=== PATIENT | female | born 2000 ===

== ENCOUNTER 2025-05-08 15:12 | Observation (INO) | payer OTHER ==
[~2025-05-08] VITALS: Ht 157.5 cm; Wt 59.0 kg
[2025-05-08] MEDS ORDERED: LORazepam 2 MG/ML 1ML Injection IM ONE ×2 (17:05→18:00)
[2025-05-08 18:09] LABS: BASOPHILS ABSOLUTE AUTO 0.04 K/mm3 (0.00-0.23); BASOPHILS PERCENT AUTO 1 % (0-2); EOSINOPHILS ABSOLUTE AUTO 0.32 K/mm3 (0.00-0.68); EOSINOPHILS PERCENT AUTO 5 % (0-6); Hematocrit 38.8 % (33.0-51.0); Hemoglobin 13.4 g/dL (11.5-16.0); IMMATURE GRAN ABSOLUTE AUTO 0.02 K/mm3 (0.00-0.10); IMMATURE GRAN PERCENT AUTO 0 % (0-1); LYMPHOCYTES ABSOLUTE AUTO 1.65 K/mm3 (0.84-5.20); LYMPHOCYTES PERCENT AUTO 26 % (21-46); MONOCYTES ABSOLUTE AUTO 0.58 K/mm3 (0.16-1.47); MONOCYTES PERCENT AUTO 9 % (4-13); Mean Corpuscular HGB Conc 34.5 g/dL (31.5-36.5); Mean Corpuscular Volume 89 fL (80-100); NEUTROPHILS ABSOLUTE AUTO 3.86 K/mm3 (1.96-9.15); NEUTROPHILS PERCENT AUTO 60 % (41-73); NRBC ABSOLUTE 0.00 K/mm3 (0.00-0.02); NRBC Auto 0.0 /100 WBC (0.0-0.2); Platelet Count 286 K/mm3 (150-400); RDW Coefficient Variation 11.9 % (11.7-14.2); RDW Standard Deviation 39.2 fL (35.1-46.3)
[2025-05-08 18:36] LABS: Salicylate <1.7 mg/dL (2.8-20.0)
[2025-05-08 18:46] LABS: Source, Urine Clean Catch
[2025-05-08 18:52] LABS: Ethanol (Alcohol), Blood, Med <3 mg/dL
[2025-05-08 19:02] LABS: Bilirubin, Urine Neg (Neg); Color, Urine Yellow (P-Yellow); Glucose Qualitative, Urine Neg (Neg); Ketones, Urine 3+ (Neg); Leukocyte Esterase, Urine Neg (Neg); Protein, Urine 2+ (Neg); Specific Gravity, Urine 1.025 (1.003-1.022); Urobilinogen, Urine NORM (Normal)
[2025-05-08 19:08] LABS: Alanine Aminotransfer (ALT/SGP 99 U/L (12-78); Albumin, Blood 4.1 g/dL (3.4-5.0); Albumin/Globulin Ratio 1.1 (0.8-1.8); Anion Gap 10 mmol/L (3-11); Aspartate Aminotrans (AST/SGOT 37 U/L (12-37); Bilirubin, Total 0.3 mg/dL (0.1-1.0); Blood Urea Nitrogen 7 mg/dL (8-24); CO2, Blood 24 mmol/L (21-32); Calcium, Blood 9.2 mg/dL (8.5-10.1); Chloride, Blood 106 mmol/L (98-108); Creatinine, Blood 0.61 mg/dL (0.40-1.00); Globulin, Blood 3.8 g/dL (2.2-4.0); Glucose, Blood 119 mg/dL (70-99); Potassium, Blood 3.6 mmol/L (3.5-5.5); Sodium, Blood 136 mmol/L (136-145); Total Protein, Blood 7.9 g/dL (6.4-8.2)
[2025-05-08 19:09] LABS: Acetaminophen, Random <2.0 ug/mL (10.0-30.0)
[2025-05-08 19:12] LABS: Red Blood Cells, Urine 50-100 /hpf (0-2)
[2025-05-08 19:16] LABS: U Amphetamine Screen Not Detected; U Barbituate Screen Not Detected; U Benzodiazapine Screen Not Detected; U Buprenorphine Screen Not Detected; U Cannabinoids Screen DETECTED; U Cocaine Screen Not Detected; U Methadone Screen Not Detected; U Methamphetamine Screen Not Detected; U Opiates Screen Not Detected; U Oxycodone Screen Not Detected; U Phencyclidine Screen Not Detected
[2025-05-09] MEDS ORDERED: RIFA300 PO (16:34)
[2025-05-09] MEDS ORDERED: DULOXETINE HCL60 M1 PO (16:36)
[2025-05-09] MEDS ORDERED: DROSPIRENONE-E1 EAC4 PO (16:37)
[2025-05-09] MEDS ORDERED: PREGABALIN75 MG PO (16:37)
[2025-05-09] MEDS ORDERED: Isoniazid300 MG (16:38)
== END 2025-05-10 15:03 | disposition other institution (70) ==
LOC: ER 15:12 → EOR 15:13 → EDBEDREQ 05-10 12:47 → EOR 05-10 15:03
PROVIDERS: Physician Assistant; ADMIT Emergency Medicine
DX: F32.A Depression, unspecified (principal); R45.851 Suicidal ideations
CPT/HCPCS: 71045; 80053; 80320; 81001; 81025; 85025; 93005; 93010; 96372; 99285-25; A9270; G0378; G0480; J2060

== ENCOUNTER 2025-05-10 12:33 | Inpatient (IN) | payer OTHER ==
[~2025-05-10] VITALS: Ht 157.5 cm; Wt 61.7 kg
[~2025-05-10 12:33] MED LIST: DROSPIRENONE-E1 EAC4 PO; DULOXETINE HCL60 M1 PO; Isoniazid300 MG; PREGABALIN75 MG PO; RIFA300 PO
[2025-05-10] MEDS ORDERED: Ondansetron 4 MG SoluTab MM PRN (15:10)
[2025-05-10] MEDS ORDERED: Polyethylene Glycol 3350 17 gm PO PRN (15:10)
[2025-05-10] MEDS ORDERED: Haloperidol Lactate Inj. 5 MG/ML Injection IM PRN (15:15)
[2025-05-10] MEDS ORDERED: DiphenhydrAMINE HCl 50 MG/ML 1ML Vial IM PRN (15:15)
[2025-05-10 15:19] VITALS: BP 120/82
[2025-05-10] MEDS ORDERED: Aluminum Hydroxide 320MG/5ML 473 ML PO PRN (15:20)
[2025-05-10 16:19] VITALS: BP 120/82
[2025-05-10 20:54] VITALS: BP 118/77
[2025-05-11] MEDS ORDERED: Multivitamins 1 Tab PO SCH (09:00)
[2025-05-11 09:18] VITALS: BP 119/72
[2025-05-11] MEDS ORDERED: DULoxetine HCL 60 MG Capsule DR PO SCH (10:00)
[2025-05-11 15:24] VITALS: BP 122/93
[2025-05-12] MEDS ORDERED: Misc. Tablet PO SCH (09:00)
[2025-05-12 09:29] VITALS: BP 107/76
[2025-05-12] MEDS ORDERED: LORazepam 2 MG/ML 1ML Injection IM PRN (12:15)
[2025-05-12 20:46] VITALS: BP 105/73
[2025-05-13 09:01] VITALS: BP 124/83
[2025-05-13 19:35] VITALS: BP 126/83
[2025-05-14 08:02] VITALS: BP 112/77
[2025-05-14 08:37] LABS: Albumin, Blood 3.7 g/dL (3.4-5.0); Anion Gap 8 mmol/L (3-11); Blood Urea Nitrogen 15 mg/dL (8-24); CO2, Blood 25 mmol/L (21-32); Calcium, Blood 9.1 mg/dL (8.5-10.1); Chloride, Blood 109 mmol/L (98-108); Creatinine, Blood 0.75 mg/dL (0.40-1.00); Glucose, Blood 86 mg/dL (70-99); Phosphorus, Blood 3.9 mg/dL (2.5-4.9); Potassium, Blood 4.0 mmol/L (3.5-5.5); Sodium, Blood 138 mmol/L (136-145)
[2025-05-14 08:38] LABS: CHOL/HDL RATIO 3.4; Cholesterol 197 mg/dL (50-200); HDL Cholesterol 58 mg/dL (>39); LDL/HDL RATIO 2.0; Low Density Lipoprotein Chol 116 mg/dL (0-110); Triglycerides 117 mg/dL (30-140); Very Low Density Lipoprot Chol 23 mg/dL (6-28)
[2025-05-14 19:14] VITALS: BP 103/70
[2025-05-15 07:58] VITALS: BP 119/79
[2025-05-15 19:31] VITALS: BP 108/67
[2025-05-16 09:04] VITALS: BP 105/73
[2025-05-16 19:27] VITALS: BP 112/69
[2025-05-17 09:08] VITALS: BP 124/71
[2025-05-17 19:03] VITALS: BP 97/72
[2025-05-17 19:52] LABS: Lithium 0.28 mmol/L (0.60-1.20)
[2025-05-18 07:30] VITALS: BP 108/82
[2025-05-18 20:44] VITALS: BP 121/73
[2025-05-19 19:45] VITALS: BP 112/80
[2025-05-20 07:31] VITALS: BP 115/80
[2025-05-20 20:17] VITALS: BP 121/77
[2025-05-21 08:55] VITALS: BP 126/79
[2025-05-21 19:24] VITALS: BP 108/76
[2025-05-22 07:54] VITALS: BP 120/76
[2025-05-22 14:46] LABS: Source, Urine Clean Catch
[2025-05-22 15:14] LABS: Bilirubin, Urine Neg (Neg); Glucose Qualitative, Urine Neg (Neg); Ketones, Urine Neg (Neg); Leukocyte Esterase, Urine Neg (Neg); Protein, Urine Neg (Neg); Specific Gravity, Urine 1.005 (1.003-1.022); Urobilinogen, Urine NORM (Normal)
[2025-05-22 15:19] LABS: Color, Urine No Color (P-Yellow)
[2025-05-22] MEDS ORDERED: Dextran/Hypromellose/Glycerin 15 DROP/ML BTL BOTHEYES PRN (23:15)
[2025-05-23 07:08] VITALS: BP 116/75
[2025-05-23 17:32] LABS: Lithium 0.93 mmol/L (0.60-1.20)
[2025-05-24 07:52] VITALS: BP 135/97
[2025-05-24 20:44] VITALS: BP 114/75
[2025-05-25 07:53] VITALS: BP 118/82
[2025-05-25] MEDS ORDERED: DULoxetine HCL 60 MG Capsule DR PO SCH (12:35)
[2025-05-25 19:25] VITALS: BP 131/82
[2025-05-26 06:54] VITALS: BP 116/82
[2025-05-26 09:38] VITALS: BP 116/82
[2025-05-26] MEDS ORDERED: CLON.5 PO (17:05)
[2025-05-26] MEDS ORDERED: ABILIFY MYCITE10 M2 PO (17:05)
[2025-05-26] MEDS ORDERED: LAMO25 PO (17:06)
[2025-05-26] MEDS ORDERED: Lithium Carbon450 MG PO (17:08)
[2025-05-26] MEDS ORDERED: OLAN20 MM (17:09)
[2025-05-26 19:31] VITALS: BP 122/79
[2025-05-27 07:31] VITALS: BP 122/77
== END 2025-05-27 13:22 | disposition home or self-care (01) | DRG 885 ==
LOC: BHU 12:33
PROVIDERS: ADMIT Psychiatry & Neurology Psychiatry
DX: F31.2 Bipolar disorder, current episode manic severe with psychotic features (principal); Z79.899 Other long term (current) drug therapy
CPT/HCPCS: 36415; 80061; 80069; 80178; 81003; 83036; A9270

== ENCOUNTER 2025-08-06 14:30 | Observation (INO) | payer OTHER ==
[~2025-08-06] VITALS: Ht 157.5 cm; Wt 56.7 kg
[~2025-08-06 14:30] MED LIST changes: +ABILIFY MYCITE10 M2 PO; +CLON.5 PO; +LAMO25 PO; +Lithium Carbon450 MG PO; +OLAN20 MM
[2025-08-06 16:11] LABS: BASOPHILS ABSOLUTE AUTO 0.03 K/mm3 (0.00-0.23); BASOPHILS PERCENT AUTO 0 % (0-2); EOSINOPHILS ABSOLUTE AUTO 0.04 K/mm3 (0.00-0.68); EOSINOPHILS PERCENT AUTO 1 % (0-6); Hematocrit 42.0 % (33.0-51.0); Hemoglobin 14.5 g/dL (11.5-16.0); IMMATURE GRAN ABSOLUTE AUTO 0.01 K/mm3 (0.00-0.10); IMMATURE GRAN PERCENT AUTO 0 % (0-1); LYMPHOCYTES ABSOLUTE AUTO 1.56 K/mm3 (0.84-5.20); LYMPHOCYTES PERCENT AUTO 20 % (21-46); MONOCYTES ABSOLUTE AUTO 0.67 K/mm3 (0.16-1.47); MONOCYTES PERCENT AUTO 9 % (4-13); Mean Corpuscular HGB Conc 34.5 g/dL (31.5-36.5); Mean Corpuscular Volume 89 fL (80-100); NEUTROPHILS ABSOLUTE AUTO 5.61 K/mm3 (1.96-9.15); NEUTROPHILS PERCENT AUTO 71 % (41-73); NRBC ABSOLUTE 0.00 K/mm3 (0.00-0.02); NRBC Auto 0.0 /100 WBC (0.0-0.2); Platelet Count 341 K/mm3 (150-400); RDW Coefficient Variation 11.9 % (11.7-14.2); RDW Standard Deviation 38.6 fL (35.1-46.3)
[2025-08-06 16:44] LABS: Acetaminophen, Random 4.2 ug/mL (10.0-30.0); Alanine Aminotransfer (ALT/SGP 21 U/L (12-78); Albumin, Blood 4.7 g/dL (3.4-5.0); Albumin/Globulin Ratio 1.2 (0.8-1.8); Anion Gap 12 mmol/L (3-11); Aspartate Aminotrans (AST/SGOT 16 U/L (12-37); Bilirubin, Total 0.5 mg/dL (0.1-1.0); Blood Urea Nitrogen 14 mg/dL (8-24); CO2, Blood 24 mmol/L (21-32); Calcium, Blood 10.2 mg/dL (8.5-10.1); Chloride, Blood 103 mmol/L (98-108); Creatinine, Blood 0.64 mg/dL (0.40-1.00); Ethanol (Alcohol), Blood, Med <3 mg/dL; Globulin, Blood 3.8 g/dL (2.2-4.0); Glucose, Blood 104 mg/dL (70-99); Potassium, Blood 3.6 mmol/L (3.5-5.5); Salicylate <1.7 mg/dL (2.8-20.0); Sodium, Blood 135 mmol/L (136-145); Total Protein, Blood 8.5 g/dL (6.4-8.2)
[2025-08-06 17:23] LABS: Source, Urine Clean Catch
[2025-08-06 17:33] LABS: Bilirubin, Urine Neg (Neg); Color, Urine Yellow (P-Yellow); Glucose Qualitative, Urine Neg (Neg); Ketones, Urine 4+ (Neg); Leukocyte Esterase, Urine Neg (Neg); Protein, Urine Neg (Neg); Specific Gravity, Urine 1.015 (1.003-1.022); Urobilinogen, Urine NORM (Normal)
[2025-08-06 17:49] LABS: U Cannabinoids Screen DETECTED
[2025-08-06 17:50] LABS: U Amphetamine Screen Not Detected; U Barbiturate Screen Not Detected; U Benzodiazapine Screen Not Detected; U Buprenorphine Screen Not Detected; U Cocaine Screen Not Detected; U Methadone Screen Not Detected; U Methamphetamine Screen Not Detected; U Opiates Screen Not Detected; U Oxycodone Screen Not Detected; U Phencyclidine Screen Not Detected
[2025-08-07] MEDS ORDERED: LORazepam 2 MG/ML 1ML Injection IV ONE (06:50)
[2025-08-07] MEDS ORDERED: Methyl Salicylate/Menth/Camph 57 GM TUBE TOP ONE (13:35)
== END 2025-08-07 15:11 | disposition other institution (70) ==
LOC: ER 14:30 → EOR 14:31
PROVIDERS: ADMIT Student in an Organized Health Care Education/Training Program
DX: F31.2 Bipolar disorder, current episode manic severe with psychotic features (principal); Z79.899 Other long term (current) drug therapy
CPT/HCPCS: 80053; 80320; 81003; 84703; 85025; 99285; A9270; G0378; G0480

== ENCOUNTER 2025-08-07 13:18 | Inpatient (IN) | payer OTHER ==
[~2025-08-07] VITALS: Ht 157.5 cm; Wt 63.1 kg
[2025-08-07] MEDS ORDERED: Haloperidol Lactate Inj. 5 MG/ML Injection IM PRN (15:00)
[2025-08-07] MEDS ORDERED: FLU VACC TS2025-26(6MOS UP)/PF 45 MCG/0.5 ML SYRINGE IM ONE (15:05)
[2025-08-07] MEDS ORDERED: Aluminum Hydroxide 320MG/5ML 473 ML PO PRN (15:05)
[2025-08-07] MEDS ORDERED: LORazepam 2 MG/ML 1ML Injection IM PRN (15:05)
[2025-08-07] MEDS ORDERED: Ondansetron 4 MG SoluTab MM PRN (15:05)
[2025-08-07] MEDS ORDERED: DiphenhydrAMINE HCl 50 MG/ML 1ML Vial IM PRN (15:10)
[2025-08-07] MEDS ORDERED: Polyethylene Glycol 3350 17 gm PO PRN (15:10)
[2025-08-07 15:35] VITALS: BP 99/75
[2025-08-07 15:57] VITALS: BP 99/75
--- NOTE | 2025-08-07 18:15 | NUR ---
ADMISSION SUMMARY PT ADMITTED FROM [facility] ED FOR [facility]. PT CALM AND COOPERATIVE WITH ADMISSION QUESTIONS. PT UNSURE OF WHAT BROUGHT HER TO THE ED AND STATES "I DON'T REMEMBER". SKIN CHECK COMPLETED WITH GINGER TORREZ. PT HAS 2 PIERCINGS IN EACH EAR AND ONE PIERCING IN HER NOSE. NO SKIN ABNORMALITIES NOTED AT THIS TIME. PT STATES THAT SHE HAS AN ADVANCED DIRECTIVE FOR MENTAL HEALTH TREATMENT AND THAT IT IS ON FILE AT [facility]. PT STATES THAT HER APPOINTED DECISION MAKER AT THIS TIME IS HER MOTHER. SHE WAS ORIENTED TO HER ROOM AND THE UNIT. SHE ATE DINNER AND IS WATCHING TV IN THE GROUP ROOM AT THE TIME OF THIS NOTE. SHE DENIES SI, HI, AVTH. HER SPEECH IS SOMEWHAT TANGENTIAL AND HER AFFECT IS BLUNTED.
[2025-08-07 19:02] VITALS: BP 114/79
--- NOTE | 2025-08-08 05:43 | NUR ---
SHIFT SUMMARY Pt is A&O to self and place. Pt is somewhat cooperative, fidgety, anxious. Pt describes her mood as "nervous," affect is flat. Pt denies SI and HI. Pt stated that she is hearing a lot of things, but not voices. She denies VH. Pt endorsed fibromyalgia pain 3/10w at the beginning of the shift, stating that she did not need a PRN for pain. Pt's speech is tangential and disorganized, displaying flight of ideas. Pt maintained a presence at the nurse station throughout the evening, bringing up various complaints and making numerous requests. At about 2029 pt reported anxiety and was offered PRN hydroxyzine or olanzapine, hydroxyzine was given at 2035 for MASS-3. Pt then reported fibromyalgia pain of 10 in her left hip and was given PRN ibuprofen at 2053. Pt requested something to help her sleep and was given PRN trazodone at 2108. Pt then requested a change of clothing so she could shower. She requested to use [facility] shower room because she was afraid she would drown in her own shower. Staff told that she needed to use the shower in her room. A few minutes later, staff heard a scream from pt's room. Upon investigation, pt stated she screamed because the water was cold. After her shower, pt continued to pace the ahn with her journal. She requested to call the "fibromyalgia group" but was told it was too late to make phone calls. Pt was offered a second dose of trazodone, which she took at 2155. At about 0 pt asked for another pain med for her left hip and was given PRN APAP at 2215. Pt approached the nurse station and complained that she was shaking and nervous. PRN olanzapine was given at 2300. Pt reported left hip pain 10 and received PRN ibuprofen at 0352. Pt reported that the pain was down to 4, but still requested PRN APAP, which she received at 0434; pt asleep at reassessment. Pt did report that she normally takes pregabalin HS to help with fibromyalgia pain. Pt was in and out of her room all night. Staff continues to monitor q15m for safety and wellness.
[2025-08-08 08:59] VITALS: BP 109/78
[2025-08-08] MEDS ORDERED: Multivitamins 1 Tab PO SCH (09:00)
--- NOTE | 2025-08-08 10:22 | NUR ---
PRN MEDICATION ADMINISTRATION PT EMOTIONALLY LABILE AND DISTRAUGHT. PT C/O FIBROMYALGIA PAIN BUT ALSO EXPERIENCING PARANOIA REGARDING HER MOTHER AND SISTER "WATCHING HER THROUGH A WATCH". PT AGREEABLE TO TYLENOL FOR PAIN AND ZYPREXA FOR AGITATION. MASS SCORE COMPLETED (SEE DOCUMENTATION) AND PT MEDICATED PER EMR.
--- NOTE | 2025-08-08 16:50 | NUR ---
SHIFT SUMMARY PT DENIES SI, HI, AVTH. CONTINUES TO BE TANGENTIAL, ANXIOUS, AND APPEARS TO HAVE RACING THOUGHTS. PT HAS BEEN GOING INTO PT ROOMS AND USING THEIR TOOTHBRUSH PER PT COMPLAINTS, EDUCATED PT ABOUT RESPECTING PT'S ROOMS/BELONGINGS AND HAVE BEEN REDIRECTING PT WHEN PT APPEARS TO BE WALKING INTO A DIFFERENT ROOM. PT HAS NOT SINCE WALKED INTO ANOTHER PT'S ROOM SINCE INITIAL COMPLAINT. PT T/O DAY C/O OF FIBROMYALGIA PAIN AND HAS BEEN TREATING PER EMAR. TALKED W/ PT'S MOM ON PHONE W/ PT'S PERMISSION AND UPDATED MOM ON PT. PT REQUESTED HOME MED LYRICA AND ORDERED PER DR ESTEBAN. NO OTHER ACUTE EVENTS TODAY.
[2025-08-08 19:09] VITALS: BP 105/74
--- NOTE | 2025-08-09 05:37 | NUR ---
SHIFT SUMMARY Pt is A&O to self and place, calm, cooperative, appropriately dressed, eye contact is appropriate. Pt s mood was "okay," affect is constricted. Pt denies SI, HI and hallucinations, but pt was noted apparently responding to internal stimuli overnight. Pt endorsed fibromyalgia pain 8/10w in her left hip and right shoulder. No other medical complaints. Pt paced around the milieu during the early evening, occasionally sitting in the dayroom with peers and appeared less fidgety that the prior evening. Pt received PRN ibuprofen for pain at 1905, which was effective. Pt requested PRN trazodone with her HS meds. At about 2200 pt was up to the nurse station, and stated that she was testing her mother. RN offered second dose of trazodone, which pt accepted before returning to her room. Pt was was only out of her room a few times after initially retiring. She expressed several delusional thoughts including that the pens provided to patients have trackers in them and that her mother can hear her thoughts through the pen. Staff continues to monitor q15m for safety and wellness.
[2025-08-09 07:57] VITALS: BP 110/76
[2025-08-09] MEDS ORDERED: DULoxetine HCL 60 MG Capsule DR PO SCH (09:00)
[2025-08-09 11:12] VITALS: BP 110/76
[2025-08-09] MEDS ORDERED: ARIPiprazole 300 MG SUSER.SYR IM SCH (17:00)
--- NOTE | 2025-08-09 17:35 | NUR ---
SHIFT SUMMARY: PT IS ALERT AND ORIENTED TO SELF AND LOCATION. SHE IS CALM AND COOPERATIVE WITH CARE. SHE DENIES SI AND HI. WHEN ASKED IF SHE IS HAVING HALLUCINATIONS SHE POINTED TO HER FOREHEAD AND NODDED. WHEN ASKED HER MOOD SHE ROLLED HER EYES AND STATED, "I'M BUILDING AN ARMY". HER SPEECH IS TANGINTIAL AT TIMES, APPEARS TO HAVE RACING THOUGHTS AND DELUSIONS. PT C/O HEADACHE AND SHOULDER PAIN THAT SHE STATES IS FIBROMYALGIA. SHE WAS MEDICATED AT 0740 AND 1530 WITH IBUPROFEN AND AT 0915 WITH TYLENOL PER EMAR. SHE C/O NAUSEA AND HAD A SMALL AMOUNT OF EMESIS IN THE MORNING, SHE WAS MEDICATED WITH ZOFRAN PRN PER EMR. SHE WAS ACTIVE IN THE MILIEU, PACING IN THE HALLS AND TALKING WITH STAFF. SHE WAS IN AND OUT OF THE ROOM DURING GROUPS AND ATTENDED MEALS. SHE SPENT MUCH OF THE DAY AT THE NURSES STATION ENGAGED WITH STAFF. SHE HAS 2 EARRINGS TO EACH EAR AND A NOSE RING THAT ARE INTACT. PT MONITORED WITH Q 15 MIN CHECKS FOR SAFETY PER UNIT PROTOCOL.
[2025-08-09 19:22] VITALS: BP 110/71
--- NOTE | 2025-08-09 21:44 | NUR ---
MID-SHIFT SUMMARY Pt is A&O, calm, cooperative, appropriately dressed, eye contact is appropriate. Pt s mood was "way better," affect is constricted. Pt denies SI, HI and hallucinations; no visible indication of responding to internal stimuli overnight noted by this blog writer. Pt stated that fibromyalgia was tolerable this evening and did not request PRN meds. Pt requested PRN trazodone with her HS meds. Pt tended to stay in her room during the evening, but did come out for assessment, snack, and meds. Staff continues to monitor q15m for safety and wellness.
--- NOTE | 2025-08-09 21:44 | NUR ---
MID-SHIFT SUMMARY Pt is A&O, calm, cooperative, polite, appropriately dressed, eye contact is appropriate. Pt stated that her mood is "good," affect is euthymic. Pt denies SI, HI, and current hallucinations. Pt endorsed neck and right shoulder pain 3/10w, but the pain does go up or down depending on activity and positioning. She did request PRN ibuprofen with her HS meds. Pt stated that she did have a BM today and continues taking docusate HS. Pt feels that she had made good progress during this admission and feels that she will be ready for discharge when her hold ends on Saturday. Pt was active on the milieu, watching TV with peers and staff. Staff continues to monitor q15m for safety and wellness.
--- NOTE | 2025-08-10 03:40 | NUR ---
ASSUMPTION OF CARE ASSUMED CARE OF PATIENT FROM GINGER WELCH AT 2199. SHE IS CURRENTLY RESTING QUIETLY IN THEIR BED. NO SIGNS OF ACUTE DISTRESS NOTED. SHE RECEIVED TO FOLLOWING PRN MEDICATIONS PRIOR IN THE SHIFT: TRAZADONE 50MG FOR SLEEP AT 2016 AND IBUPROFEN 600MG FOR LEG PAIN AT 2118.
--- NOTE | 2025-08-10 05:00 | NUR ---
END OF SHIFT SUMMARY ASSUMED CARE OF PATIENT FROM GINGER WELCH AT 2200. SHE IS CURRENTLY RESTING QUIETLY IN HER BED. SHE HAS BEEN AWAKE SINCE APPROXIMATELY 0117. SHE VARIED BETWEEN SITTING IN THE SENSORY ROOM, PACING IN THE MCRAE, SITTING IN THE MCRAE, AND TALKING TO STAFF. SHE WAS REDIRECTED TO LEAVE ANOTHER PATIENT'S ROOM ONCE AND REEDUCATED THAT THIS BEHAVIOR WAS NOT ALLOWED. SHE RECEIVED THE FOLLOWING PRN MEDICATIONS: MELATONIN 3MG FOR SLEEP AT 0121 AND TYLENOL 650MG FOR A HEADACHE AT 0310.
--- NOTE | 2025-08-10 05:01 | NUR ---
PRN NOTE PATIENT RECEIVED THE FOLLOWING PRN MEDICATIONS DURING SPRINKLER HELPER: TRAZADONE 50MG FOR SLEEP AT 2016, IBUPROFEN 600MG FOR LEG PAIN AT 2118, MELATONIN 3MG FOR SLEEP AT 120 AND TYLENOL 650MG FOR A HEADACHE AT 309.
[2025-08-10 07:04] VITALS: BP 124/90
--- NOTE | 2025-08-10 17:09 | NUR ---
SHIFT SUMMARY PT A/O X3 AND COOPERATIVE WITH CARE. SHE DENIES SI AND HI. PT UNSURE IF SHE IS EXPERIENCING AUDITORY HALLUCINATIONS. PT STATES "I HEAR VOICES BUT I THINK IT MAY JUST BE STAFF, I'M NOT SURE." PT CALM AND ENGAGED WITH MILIEU ACTIVITIES THIS SHIFT. HER SPEECH IS TANGENTIAL AT TIMES AND SHE EXPERIENCES SOME DELUSIONS RELATED TO HER MOTHER SPYING ON HER. SHE OFTEN PACES IN THE HALLS AND SOMETIMES REQUIRES REDIRECTION. HER AFFECT IS CONSTRICTED AND HER SHE DESCRIBES HER MOOD "SO, SO". SHE IS MONITORED Q15 PER UNIT PROTOCOL FOR SAFETY AND WELLNESS.
[2025-08-10 19:20] VITALS: BP 124/81
--- NOTE | 2025-08-10 22:53 | NUR ---
MID SHIFT SUMMARY FOR REPORT OFF: PT HAS HAD AN UNEVENTFUL EVENING. PARTICIPATED IN TV TIME, SNACK, AND THEN WENT TO BED FOR EVENING. NO C/O A/V HALLUCINATIONS, NO THOUGHTS OF SELF HARM. C/O HEADACHE EARLIER THIS EVENING WHICH WAS FULLY RELIEVED BY ADMINISTRATION OF ACETAMINOPHEN. CONT 15 MIN CHECKS PER PROTOCOL.
--- NOTE | 2025-08-10 23:21 | NUR ---
Assumed care of patient at 2311. Patient currently sleeping. Will continue every 15 minute per unit protocol for safety and comfort.
--- NOTE | 2025-08-11 04:46 | NUR ---
SHIFT SUMMARY Patient OOB and pacing, to the Sensory room and to the nurses station from 2330 until 0345 when she finally fell asleep. Patient was given 2 Trazodone, an Advil and a Vistaril for a mass score of 3. She appeared very anxious, then became very frustrated and upset because this RN would not let her use the phone to call her mother at 0300. Will continue close observation every 15 minutes for safety and patient comfort.
[2025-08-11 07:14] VITALS: BP 122/89
--- NOTE | 2025-08-11 12:26 | NUR ---
"Spiritual Care Consult | Pt. request Met Pt. in the U. Pt. is pleasant and is known to this single pointed operator from a previous encouraging U visit. Facilitated a life review and identified some of the Pts. primary sources of anxiety. Considered matters of the Pts. support base and other community resources. Pt. displayed evidence of being encouraged. Considered matters of jeremiah and culture. Prayed with Pt. Pt. verbalized gratitude for the spiritual care visit."
--- NOTE | 2025-08-11 17:03 | NUR ---
SHIFT SUMMARY PT A/O X3 AND COOPERATIVE WITH CARE. SHE DENIES SI, HI, AVTH. PT UP AND PACING AROUND THE UNIT AND SOMETIMES REQUIRES REDIRECTION. SHE C/O HEADACHES AND FIBROMYALGIA PAIN THIS SHIFT, SHE WAS TREATED PER EMR. SHE CONTINUES TO EXPERIENCE DELUSIONS REGARDING BEING AND PARANOIA ABOUT HER MOTHER SPYING ON HER. PT ATTENDED GROUPS AND MOST MEALS. SO GOT A FEW HOURS OF BROKEN SLEEP T/O THE DAY WELL.
[2025-08-11 19:43] VITALS: BP 134/86
--- NOTE | 2025-08-11 22:03 | NUR ---
VISTARIL GIVEN AT 193 FOR MASS SCORE OF 3. ZYPREXA GIVEN AT 2139 FOR A MASS SCORE OF 8. PATIENT NOW RESTING COMFORTABLY IN BED.
--- NOTE | 2025-08-12 03:46 | NUR ---
zyprexa given for MASS score of 5. Patient restless, anxious and pacing back and forth between room and the nursing station unable to stop or relax.
--- NOTE | 2025-08-12 04:04 | NUR ---
Patient alert and oriented times three. Out in the milieu in the day room and sharing snack time with her peers. At HS, she was given Vistaril with her scheduled medications, then a Zyprexa zydis for a MASS score of 8 at 2140. After that, she slept for about 3 hours. 2nd zyprexa given for a score of 5 at 0230 and patient finally went back to bed at 0400. She denied SI,HI and AVTH during evening assessment. Will continue close monitoring every 15 minutes for safety and comfort
--- NOTE | 2025-08-12 06:20 | NUR ---
Vistaril given for anxiety with mass score of 3.
[2025-08-12 08:07] VITALS: BP 145/94
--- NOTE | 2025-08-12 16:55 | NUR ---
SHIFT NOTE PT DENIES SI/HI/AVTH. SHE WAS COOPERATIVE WITH HER MEDICATIONS. NO PRN'S WERE ADMINISTERED THIS SHIFT. SHE CONTINUES TO HAVE DILLUSIONAL THINKING. SHE ATTEMPTS TO TALK TO THE STAFF USING HAND MOTIONS AND SHE CALLS IT "TALKING IN CODE." PT HAD TO BE REDIRECTED SEVERAL TIMES TODAY TO JOIN THE MILIEU AND GROUPS AND NOT HANG AROUND THE NURSES STATION. SHE IS DISTRACTED EASILY. PT IS CALM AND STATES SHE IS "FRUSTRATED." NO ACUTE BEHAVIORS TO REPORT. PT APPEARS TIRED BUT REFUSES TO TAKE A NAP.
--- NOTE | 2025-08-12 17:22 | NUR ---
NURSE NOTE PT APPROACHED THIS RN AND STATES SHE USED TO BE IN A SEXUAL RELATIONSHIP WITH ONE OF THE MALE PATIENTS ON THE UNIT. SHE STATES SHE BELIEVES SHE CONTACTED "SOMETHING FROM HIM" AND SHE POINTS TO HER UPPER MEDIAL R THIGH. SHE HAD A CONSULT EARLIER THIS SHIFT FROM DR. NATALIA SOTO R/T A POSSIBLE RASH ON HER R HIP, SHE WAS COMPLAINING OF ITCHING. PT BELIEVES SHE WAS DATING "THE BLONDE MALE" BUT THERE IS NOT CURRENTLY A BLONDE MALE ON THE UNIT AT THIS TIME. NO NEW ORDERS AT HIS TIME R/T THE POSSIBLE RASH.
--- NOTE | 2025-08-12 22:54 | NUR ---
MID SHIFT SUMMARY REPORT: PT HAD UNEVENTFUL EVENING. INITIALLY WAS SLEEPING AT CHANGE OF SHIFT BUT WOKE FOR NEW PM MEDS. PT THEN UNABLE TO FALL BACK ASLEEP AND REQUESED MEDICATION FOR SLEEP. CURRENTLY IN BED AND APPEARS TO BE SLEEPING SOUNDLY WITH SLOW STEADY CHEST RISE, EYES CLOSED, RELAXED POSTURE. NO OTHER C/O THIS EVENING.
--- NOTE | 2025-08-13 05:18 | NUR ---
SHIFT SUMMARY: RESUMMED CARE OF PT AT 2300 FROM GINGER HERRERA. PT HAS CONTINUED SLEEPING. PT AWOKE AROUND 0500 FOR C/O ABDI. GIVEN TYLENOL FOR ABDI AND SHE WENT BACK TO BED. WILL CONTINUE TO MONITOR Q 15 MINS FOR SAFETY AND WELLNESS.
[2025-08-13 08:55] VITALS: BP 136/95
--- NOTE | 2025-08-13 11:22 | NUR ---
SHIFT SUMMARY PT DENIES SI/HI/AVTH. PT IS COOPERATIVE WITH MEDICATIONS. NO PRN'S GIVEN FROM THIS RN. PT CONTINUES TO HAVE DILLUSIONAL THINKING. SHE THINKS OTHER PATIENTS ARE PEOPLE SHE HAS BEEN IN PREVIOUS RELATIONS WITH AND ARE PEOPLE WHO THEY ARE NOT. PT ENCOURAGED TO GET INTO THE SHOWER, SHE REFUSED MULTIPLE TIMES SAYING IT CAUSES HER TO HAVE PTSD. SHE NEEDS TO BBE ENCOURAGED TO JOIN GROUPS AND MAINTAIN HER PERSONAL SPACE WITH OTHER PATIENTS. REPORT GIVEN TO GINGER TORREZ.
--- NOTE | 2025-08-13 16:27 | NUR ---
Assumed care of this patient after noon. The patient attended the group and is present on the unit, interacting with peers. It appears that she is still having delusional thinking, as she believes that other patients are people from her past that she has had some interactions with. The patient leaves notes on the desk and reports that she is . The patient has been assured that she is not . She started the Triamcinolone cream for the rash on her upper thigh. Dr. Ceja will be stopping at the [facility] to consult. She had a visit with her mom this shift. Patient seems to be tolerating the start of Seroquel that began last night. Please also see previous note.
[2025-08-13 19:39] VITALS: BP 115/78
--- NOTE | 2025-08-14 04:17 | NUR ---
SHIFT SUMMARY PATIENT UP IN MILIEU VISITING WITH STAFF AND PEERS. TANGENTIAL CONVERSATION CONTINUES. PATIENT VERBALIZED THAT SHE FEELS IF SHE IS ABLE TO FOCUS MORE TODAY MAKING IT EASIER TO HAVE A CONVERSATION AND TO MAKE HER NEEDS HEARD. DENIES SI, HI, OR AVTH. AT TIMES APPEARS TO BE RESPONDING TO INTERNAL STIMULI. PATIENT COOPERATIVE WITH PO MEDICATIONS. NO PRN MEDICATIONS GIVEN DURING THE NIGHT. PATIENT SLEEPING WELL UNTIL 0215, UP TO NURSES DESK WITH EYES CLOSED, VERBALIZED DIFFICULTY URINATING, PATIENT REDIRECTED TO HER ROOM AND WAS ABLE TO URINATE. PATIENT NOW SLEEPING RESP EVEN AND UNLABORED. CONTINUE TO MONITOR Q15MIN
--- NOTE | 2025-08-14 07:06 | NUR ---
PATIENT AWAKE UP TO NURSES DESK C/O SLIGHT ABDI. IBUPROFEN GIVEN WITH GOOD RESULTS
[2025-08-14 08:00] VITALS: BP 132/91
--- NOTE | 2025-08-14 14:07 | NUR ---
ASSUMED PT CARE @ 0700. PT IS AAA&O TO PERSON PLACE AND SITUATION. SHE IS PLEASANT AND COOPERATIVE WITH CARE. EYE CONTACT IS INTENSE AT TIME. SPEECH IS DISORGANIZED WITH SOME LATENCY. SHE CAN ANSWER QUESTIONS APPROPRIATELY BUT EASILY VEERS OFF TOPIC. SHE OFTEN ASKS QUESTIONS OR TALKS ABOUT TOPICS THAT ARE NOT CONDUSIVE WITH THE COVERSATION. SHE IS COMPLIANT WITH MEDICTIONS AND DENIES ANY ADVERSE EFFECTS. SHE HAS BEEN UP FOR MEALS, SHOWER, AND GROUP. SHE IS INTERACTING WELL WITH STAFF AND PEERS. SHE DENIES SI, HI, AVH. WILL CONTINUE POC
--- NOTE | 2025-08-14 17:54 | NUR ---
SHIFT SUMMARY NO CLINICAL CHANGES THIS SHIFT. RAUL SPENT THE DAY INTERACTING WITH STAFF AND PEERS. SHE SPENT TIME IN THE DAY ROOM, COLORING PLAYING CARDS AND WATCHING TV. WILL CONTINUE POC
--- NOTE | 2025-08-14 23:58 | NUR ---
MID SHIFT SUMMARY: PATIENT HAS TWO EARRINGS ON THE TOP OF EACH EAR, IN PLACE AND INTACT. SHE ALSO HAS A NOSE RING ON THE RIGHT SIDE OF HER RIGHT NOSTRIL, IN PLACE AND INTACT. PATIENT WAS IN THE MILIEU AT THE BEGINNING OF THE SHIFT. SHE MOSTLY INTERACTED WITH SELECT MALE PEER, BUT WAS PLEASANT AND FRIENDLY WITH ALL STAFF AND PEERS. SHE PRESENTED EUTHYMIC AND COOPERATIVE. SHE DENIED SUICIDAL IDEATION, THOUGHTS OF SELF HARMING AND A/V/T HALLUCINATIONS. SHE PARTICIPATED IN SNACK AND WRAP UP GROUP, AND WAS COMPLIANT WITH EVENING MEDICATION ADMINISTRATION. SHE WENT TO BED SHORTLY AFTER SNACK TIME, AND AT THIS WRITING, CONTINUES TO BE RESTING QUIETLY IN BED WITH EYES CLOSED AND RESPIRATIONS CONFIRMED. CONTINUING TO MONITOR FOR SAFETY WITH Q15 MINUTE CHECKS.
--- NOTE | 2025-08-15 01:37 | NUR ---
ASSUMPTION OF CARE ASSUMED CARE OF PATIENT FROM GINGER BULLOCK AT MIDNIGHT. SHE IS CURRENTLY RESTING QUIETLY IN HER BED. NO SIGNS OF ACUTE DISTRESS NOTED. SHE RECEIVED TO FOLLOWING PRN MEDICATIONS PRIOR IN THE SHIFT: NICORETTE 2MG AT 1941.
--- NOTE | 2025-08-15 04:25 | NUR ---
END OF SHIFT SUMMARY PATIENT HAS SLEPT SINCE THIS COAT PRESSER ASSUMED CARE AT MIDNIGHT. NO PRN MEDICATIONS WERE UTILIZED. PATIENT DOES NOT SEEM TO BE IN ANY ACUTE DISTRESS.
[2025-08-15 07:27] VITALS: BP 126/83
--- NOTE | 2025-08-15 17:31 | NUR ---
SHIFT SUMMARY PT PRESENTS ALERT AND ORIENTED WITH GOOD EYE CONTACT, CLEAR SPEECH WITH NORMAL TONE, PRESENTABLE HYGIENE, COOPERATIVE IN CARE, OTHER THAN REFUSING MORNING LABS AGAIN AND IS MEDICATION COMPLIANT. PT HAS BEEN UP ALL DAY AND INVOLVED IN THE MILIEU. SHE HAS DENIED SI/HI/AVH. AT APPROX 1400 THIS SHIFT, PATIENT REQUESTED SOMETHING FOR HER ANXIETY. SHE WAS MEDICATED WITH HYDROXAZINE PRN FOR A MASS SCORE OF 3. SHE HAD A VISIT FROM HER MOTHER AND SISTER THIS AFTERNOON AND THAT APPEARED TO HAVE GONE WELL. MADE A PLAN WITH PT FOR TOMMORROW MORNING FOR LAB DRAW. SHE WILL GET A VISTARIL SOON I ARRIVE IN THE MORNING TO HELP WITH HER ANXIETY. PT HAS RECEIVED Q15 MIN VISUAL SAFETY CHECKS THROUGHOUT THE SHIFT.
[2025-08-15 20:58] VITALS: BP 113/88
--- NOTE | 2025-08-15 22:50 | NUR ---
MID SHIFT SUMMARY: PT HAD UNEVENTFUL EVENING. PARTICIPATED IN SNACK, BRUSHED HAIR, ASKED FOR MEDICATION TO HELP HER SLEEP, AND SHE IS CURRENTLY SLEEPING IN BED. NO C/O SI. NO HALLUCINATIONS. THOUGHT PROCESS IS GOAL ORIENTED AND FOCUSED.
--- NOTE | 2025-08-15 23:37 | NUR ---
ASSUMPTION OF CARE ASSUMED CARE OF PATIENT FROM GINGER HERRERA AT 0. SHE IS CURRENTLY RESTING QUIETLY IN HER BED. NO SIGNS OF ACUTE DISTRESS NOTED. SHE RECEIVED TO FOLLOWING PRN MEDICATIONS PRIOR IN THE SHIFT: TRAZADONE FOR SLEEP AT 2028.
--- NOTE | 2025-08-16 04:52 | NUR ---
END OF SHIFT SUMMARY PATIENT HAS SLEPT SINCE THIS PILOT PLANT SUPERVISOR ASSUMED CARE AT 2330. RECEIVED THE FOLLOWING PRN MEDICATIONS: ZYPREXA ZYDIS 10MG AT 0244 (MASS=4) FOR INCREASED ANXIETY SECONDARY TO SCHEDULED BLOOD DRAW IN AM. PATIENT DOES NOT SEEM TO BE IN ANY ACUTE DISTRESS. SHE CONTINUES TO BE MONITORED EVERY 15 MINUTES FOR WELLNESS AND SAFETY.
[2025-08-16 08:06] VITALS: BP 110/83
[2025-08-16 08:28] LABS: Lithium 1.16 mmol/L (0.60-1.20)
--- NOTE | 2025-08-16 14:09 | NUR ---
Upon receiving a referral for spiritual care, I visited the patient. She is soft spoken and kind. 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 We talk about her Voodoo jeremiah and how it can provided peace and inspiration to her. She has a mix of her traditional views and a more spiritual modern views which she holds together with a degree of humility and hope. I provided therapeutic listening, spiritual guidance and prayer. The patient responded well and showed signs of greater peace and stated that the visit was very encouraging. Spiritual care will remain available.
--- NOTE | 2025-08-16 17:21 | NUR ---
SHIFT SUMMARY PT PRESENTS ALERT AND ORIENTED WITH GOOD EYE CONTACT, CLEAR SPEECH WITH NORMAL TONE, PRESENTABLE HYGIENE, COOPERATIVE IN CARE, SHE DID COOPERATE AND ALLOWED HER LABS TO BE DRAWN THIS MORNING. STS SHE SLEPT VERY WELL. PT HAS BEEN UP ALL DAY AND INVOLVED IN THE MILIEU, GROUPS & TV TIME. SHE HAS DENIED SI/HI/AVH. SHE HAD PRN IBUPROPHEN FOR A HEADACHE AT 6/10 WITH A LATER STATED PAIN LEVEL OF 2/10. LATE AFTERNOON, PT IS VERY UPBEAT AND PLESANT TO BE AROUND IN THE TV ROOM. PT HAS RECEIVED Q15 MIN VISUAL SAFETY CHECKS THROUGHOUT THE SHIFT.
[2025-08-16 19:29] VITALS: BP 117/69
--- NOTE | 2025-08-16 20:35 | NUR ---
PRN MEDICATION: PATIENT REQUESTED AND WAS GIVEN TRAZODONE WITH EVENING MEDICATION ADMINISTRATION. SHE STATED THAT SHE "TOOK IT LAST NIGHT" AND "IT WAS HELPFUL". WILL CONTINUE TO MONITOR FOR EFFECTIVENESS AND FOR SAFETY.
--- NOTE | 2025-08-17 04:02 | NUR ---
SHIFT SUMMARY: PATIENT IS A 25 YEAR OLD FEMALE ADMITTED FOR [facility] ON 08/07/25. SHE PRESENTS DECENTLY GROOMED WITH HER HAIR BRAIDED. SHE IS A AND O X4. SHE SPEAKS IN A MODERATE TONE AND HAS RAPID SPEECH. HER EYE CONTACT IS APPROPRIATE. SHE DESCRIBES HER MOOD "HAPPY, I'M SO GLAD WHEN I FEEL HAPPY". SHE DENIES SI, HI, AVTH AND SHOWS NO S/SX OF SAME. SHE STATES, "I'M SO HAPPY BECAUSE I'M SO CLOSE TO GOD." EDUCATION WAS GIVEN REGARDING EVENING MEDICATION, INCLUDING REQUESTED PRN OF TRAZODONE. PATIENT SAT IN THE DAY ROOM AND WATCHED TELEVISION, AND PARTICIPATED IN EVENING SNACK AND WRAP UP GROUP IN THE DINING AREA AT 1999. SHE IS COMPLIANT WITH CARES, INCLUDING MEDICATION ADMINISTRATION. PRN TRAZODONE GIVEN FOR INSOMNIA AT 2024 WAS EFFECTIVE FOR INSOMNIA, EVIDENCED BY PATIENT RESTING IN BED QUIETLY WITH EYES CLOSED AND RESPIRATIONS CONFIRMED UPON FOLLOWUP ASSESSMENT. PATIENT WAS MONITORED THROUGHOUT THE SHIFT Q15 MINUTES FOR SAFETY.
--- NOTE | 2025-08-17 04:08 | NUR ---
JEWELRY: PATIENT HAS TWO EARRINGS AT THE TOP OF EACH EAR, IN PLACE AND INTACT. SHE ALSO HAS A NOSE RING ON THE RIGHT SIDE OF HER NOSE, WHICH IS IN PLACE AND INTACT. CONTINUING TO MONITOR JEWELRY FOR SAFETY.
[2025-08-17 08:50] VITALS: BP 136/78
--- NOTE | 2025-08-17 17:09 | NUR ---
SHIFT SUMMARY PT DENIES SI/HI/ATVH. SHE STATES HER MOOD WAS "CONFIDENT" AND SHE SHOWED INTEREST TODAY IN BEGINING THE D/C PLANNING. SHE WAS ACTING EUTHYMIC AND PARTICIPATED IN ACTIVITIES AND GROUPS. SHE WAS COOPERATIVE WITH ALL MEDICATIONS AND WAS MEDICATED IN THE AFTERNOON WITH VISTARIL FOR C/O ANXIETY AND MASS SCORE OF 4. PT HAD A VISIT WITH HER MOTHER IN THE EVENING THAT APPEARED TO GO WELL. TENTATIVE D/C HOME PLAN WAS SET FOR POSSIBLY Saturday08/20/25.
[2025-08-17 20:21] VITALS: BP 124/78
--- NOTE | 2025-08-17 20:54 | NUR ---
MEDICATION: PATIENT REQUESTED TRAZODONE 50 MG PO FOR INSOMNIA, GIVEN AT 2028. AT 2153, PATIENT IS RESTING QUIETLY ON HER BED, STATES IT IS "MAKING ME SLEEPY, THANK YOU". CONTINUING TO MONITOR FOR EFFECTIVENESS AND SAFETY WITH Q15 MINUTE CHECKS.
--- NOTE | 2025-08-18 04:22 | NUR ---
SHIFT SUMMARY: PATIENT IS A 25 YEAR OLD FEMALE ADMITTED 08/07/25 FOR [facility]. SHE PRESENTS ADEQUATELY GROOMED, A AND O X4, AND SPEAKS WITH A MODERATE TONE OF VOICE. HER EYE CONTACT IS APPROPRIATE. SHE DESCRIBES HER MOOD "HAPPY, IT'S BEEN A GOOD DAY". HER PRESENTATION IS LESS ENERGETIC THAN THE PREVIOUS SHIFT, BUT SHE CONTINUES TO SMILE AND INTERACT PLEASANTLY WITH PEERS AND STAFF. SHE DENIES SI, HI AND AVTH. PATIENT SPENT TIME IN THE DAY ROOM, AND PARTICIPATED IN SNACK AND WRAP UP GROUP. SHE WAS COMPLIANT WITH EVENING MEDICATIONS, AND REQUESTED AND WAS GIVEN TRAZODONE FOR INSOMNIA, WHICH WAS EFFECTIVE. EDUCATION WAS GIVEN REGARDING EVENING MEDICATIONS, INCLUDING HER CREAM. SHE HAS A NEW ORDER BUT THE SECOND CREAM IS NOT AVAILABLE YET. SHE WENT TO BED AFTER SNACK AND MEDICATIONS, AND WAS NOTED TO BE RESTING QUIETLY WITH EYES CLOSED AND RESPIRATIONS CONFIRMED FOR THE REMAINDER OF THE SHIFT. CONTINUING TO MONITOR FOR SAFETY WITH Q15 MINUTE CHECKS.
[2025-08-18 08:13] VITALS: BP 122/83
--- NOTE | 2025-08-18 11:06 | NUR ---
SHIFT SUMMARY PT DENIES SI/HI/AVTH. SHE IS EUTHYMIC AND STATES SHE IS FEELING MUCH BETTER. PT IS COMPLIANT WITH MORNING MEDICATIONS AND JOINING GROUPS. SHE IS ACTIVE IN THE [facility] AND INTERACTING WITH PEERS AND STAFF APPROPRIATELY. SHE HAS NOT RECIEVED PRN MEDS OR EXHIBITED ANY ACUTE BEHAVIORS.
--- NOTE | 2025-08-18 13:13 | NUR ---
ASSUMED CARE. PT DENIED SI, HI AND AVH. SHE ENDORSED, "MINIMAL ANXIETY...BUT WILL TAKE CARE OF IT WITH MY JOURNALING." PT REPORTED, 3/10w PAIN IN HER SHOULDERS. SHE DESCRIBED HER MOOD , "HAPPY...I SLEPT GOOD...LOT'S OF ENERGY! I'M GLAD I CAN MAKE FRIENDS HERE!" HER GOALS TODAY ARE: "I WANT TO FINISH A POEM THAT I'M WRITING, I'M LOOKING FORWARD TO THE NEXT DAYS UNTIL DISCHARGE. I'M TALKING TO A NEW PERSON ABOUT UNIT EXPECTATIONS AND IT FEELS GOOD TO HELP SOMEONE ELSE."
--- NOTE | 2025-08-18 17:40 | NUR ---
PT HAS BEEN PLEASANT AND COOPERATIVE ALL AFTERNOON. SHE HAS BEEN VISITING WITH HER PEERS AND ACTIVE IN GROUPS.
[2025-08-18 19:05] VITALS: BP 116/79
--- NOTE | 2025-08-19 04:28 | NUR ---
SHIFT SUMMARY PT IS A&OX4, PLEASANT AND COOPERATIVE WITH CARE, PARTICIPATING IN MILIEU. REPORTS HER MOOD "VERY HAPPY. I AM FEELING MORE CONFIDENT IN SOCIAL SITUATIONS." EUTHYMIC AFFECT. DENIES ANY SI, HI OR AVTH. STATES SHE FEELS READY FOR DISCHARGE. HAD EVENING SNACK, PARTICIPATED IN WRAP UP GROUP. SHE WAS COMPLIANT WITH EVENING MEDS, REQUESTED AND RECEIVED PRN TRAZODONE AND WENT TO BED. PT HAS REMAINED IN BED THROUGHOUT THE NIGHT. Q15 MINUTE CHECKS TO CONTINUE PER PT SAFETY.
[2025-08-19 08:05] VITALS: BP 119/78
[2025-08-19] MEDS ORDERED: LITH300ER PO (14:27)
[2025-08-19] MEDS ORDERED: QUET100 PO (14:28)
[2025-08-19] MEDS ORDERED: LITHIUM CARBON450 M1 PO (14:31)
--- NOTE | 2025-08-19 17:22 | NUR ---
The patient is alert and orientated. She is smiling and happy this shift. She has been participating in group activities throughout the day. The patient describes her mood as happy. Her thought process appears to be coming back to her baseline. She is able to hold a logical conversation, sit in a group and listen to the information being presented. The patient denies SI, HI and Hallucination. She does talk about the boys in her life and states she does not want to date anyone right now. The patient is alert and orientated, able to make her needs known and is excited to be discharging tomorrow. Discharge order has been placed, medications have been put into the discharge plan. Lab result has been printed. Discharge check list and discharge plan need to be finished before she leaves tomorrow. She has not utilized any PRN since I have assumed care this afternoon.
[2025-08-19 19:35] VITALS: BP 112/80
--- NOTE | 2025-08-20 04:58 | NUR ---
vvvvvvvvvvSHIFT SUMMARY Pt is A&O, calm, cooperative, appropriately dressed, eye contact is appropriate. Pt s mood was "happy," affect is constricted. Pt denies SI, HI and hallucinations. She also denies current pain. Pt stated that she is excited to be going home tomorrow and is ready for discharge. Pt spent the evening in the activity room watching TV. Pt requested PRN trazodone for sleep. Staff continues to monitor q15m for safety and wellness.
[2025-08-20 08:00] VITALS: BP 113/77
--- NOTE | 2025-08-20 12:25 | NUR ---
iMPORTANT DISCHARGE INFORMATION PATIENT DISCHARGING TODAY. HER MOTHER "CESAR" WILL BE PICKING HER UP AROUND 2:40PM. HER PHONE NUMBER IS . ALL PARTIES VERBALIZE AN UNDERSTANDING. FOLLOW UP APPOINTMENT WITH SH[facility]Y [facility]ON ON 09/07/25AT 8:15AM. FOLLOWUP NEEDED WITH SHORT[facility] OPEN ACCESS OR CRISIS SUPPORT PHARMACY: [facility] FAX NUMBER IS
[2025-08-20] MEDS ORDERED: ABILIFY MAINTE300 M1 IM (13:24)
--- NOTE | 2025-08-20 15:43 | NUR ---
DISCHARGE NOTE PT AxOx4. PLEASANT AND COOPERATIVE WITH CARE. PT IS DISCHARGING HOME TODAY WITH HER MOTHER. SHE HAS BEEN FOLLOWING HER TREATMENT PLAN INCLUDING TAKING ALL MEDICATIONS PRESCRIBED, ATTENDING AND PARTICIPATING IN ALL [facility] THERAPY GROUPS, AND MINGLING APPROPRIATELY WITH PEER AND STAFF. PT DENIES ANY IDENTIFIED MEDICATION SIDE EFFECTS AND REPORTS FEELING LIKE HER MENTAL HEALTH HAS IMPROVED. DISCHARGE INSTRUCTIONS WERE DISCUSSED WITH PATIENT INCLUDING FOLLOW UP APPOINTMENT INFO FOR OUTPATIENT MENTAL HEALTH SERVICES, DC MEDICATION LIST AND PATIENT EDUCATION ON MEDICATIONS AND DIAGNOSES. PT VERBALIZED UNDERSTANDING AND DENIED FURTHER QUESTIONS. PT'S BELONGINGS WERE RETURNED AND SHE WAS SAFELY ESCORTED OUT TO HER RIDE (HER MOTHER) AT APPROX 1446.
== END 2025-08-20 14:46 | disposition home or self-care (01) | DRG 885 ==
LOC: BHU 13:18
PROVIDERS: ADMIT Psychiatry & Neurology Psychiatry
DX: F31.2 Bipolar disorder, current episode manic severe with psychotic features (principal); L30.9 Dermatitis, unspecified; M79.7 Fibromyalgia; R51.9 Headache, unspecified; Z79.899 Other long term (current) drug therapy; Z28.21 Immunization not carried out because of patient refusal; Z79.1 Long term (current) use of non-steroidal anti-inflammatories (NSAID)
CPT/HCPCS: 36415; 80178; 96372; A9270; J0401; J1200; J1630; J2060